=== PATIENT | male | born 1970 | race Caucasian/White ===

== ENCOUNTER 2017-06-24 07:56 | Outpatient (CLI) ==
[2014-09-26 19:39] VITALS: BMI 30.9
== END 2017-06-24 07:57 | disposition home or self-care (01) ==
LOC: AMBL 07:56
PROVIDERS: ATTEND Emergency Medicine
DX: S01.411A Laceration without foreign body of right cheek and temporomandibular area, initial encounter (principal); S01.311A Laceration without foreign body of right ear, initial encounter; S20.319A Abrasion of unspecified front wall of thorax, initial encounter; W20.8XXA Other cause of strike by thrown, projected or falling object, initial encounter; F17.210 Nicotine dependence, cigarettes, uncomplicated

== ENCOUNTER 2018-01-25 12:50 | Emergency (ER) | payer OTHER ==
[2018-01-25 12:53] VITALS: BP 158/88; TEMP 97.1; BMI 31.5
--- NOTE | 2018-01-25 14:18 | CT ---
EXAM: CTA of the chest. History: Chest pain. Technique: Multiplanar CT images through the thorax were obtained following administration of IV con trast. MIP images and 3-D reconstructions were also provided. Findings: Heart size is within normal limits. No pericardial effusion. Great vessels are unremarka ble. No pathologically enlarged thoracic lymph nodes. No pulmonary arterial filling defects. Mild di ffuse bronchial wall thickening. No pneumothorax. Mild left lower lobe infiltrate and trace left ple ural effusion. Trace right pleural effusion. No suspicious lung masses or lung nodules. Within the visualized upper abdomen, no acute findings. No acute osseous abnormalities. Impression: 1. No pulmonary embolism. 2. Mild left lower lobe infiltrate and trace left pleural effusion. 3. Trace right pleural effusion. 4. Diffuse bronchial wall thickening.
[2018-01-25] MEDS ORDERED: LEVAQUIN 750 MG in PREMIX 150 ML D5W 1 BAG IV STA (14:25)
[2018-01-25] MEDS ORDERED: DUONEB NEB STA (14:26)
--- NOTE | 2018-01-25 14:28 | ED.PDOC ---
General ED Provider: Dr. JENNIFER WILD-ER Chief Complaint: Chest Pain Stated Complaint: im coughing and congested and i had fever--i think i have pneumonia Time Seen by Physician: 12:55 Mode of Arrival: Walk-In Information Source: Patient Exam Limitations: No limitations Primary Care Provider: [facility] Nursing and Triage Documentation Reviewed and Agree: Yes Reviewed sepsis parameters & appropriate labs ordered?: Yes System Inflammatory Response Syndrome: Not Applicable Sepsis Protocol: For patient's 13 years and over: Temp is 96.8 and below OR 101 and greater Pulse >90 BPM Resp >20/minute Acutely Altered Mental Status Are patient's symptoms suggestive of a new infection, such as: -Pneumonia -Skin, Soft Tissue -Endocarditis -UTI -Bone, Joint Infection -Implantable Device -Acute Abdominal Infection -Wound Infection -Meningitis -Blood Stream Catheter Infection -Unknown Respiratory Complaint Exam - Respiratory Complaint/Exam Onset/Duration: 2 days Symptoms Are: Still present Initial Severity: Mild Current Severity: Mild Character: Reports: Productive cough Aggravating: Reports: URI Alleviating: Reports: None, Nasal suction Associated Signs and Symptoms: Reports: Fever, Chills, URI. Denies: Rapid breathing, Dyspnea, Chest pain, Pleuritic chest pain, Wheezing, Hemoptysis, Dizziness, Calf pain, Calf swelling, Edema Related History: Reports: Similar episode History of Healthcare-Acquired Pneumonia: No Pulmonary Embolism Risk Factors: None Cardiac Risk Factors: Reports: Smoking Home Oxygen Use: No Recent Stress Test: No Recent Echo/LV Function: No Current Antibiotic Use: No Current Asthma Medication Use: No Respiratory Distress: None Inadequate Respiratory Effort: No Dysphagia Present: No Stridor Present: No JVD Present: No Accessory Muscle Use: No Retractions: Not Present Diminished Breath Sounds: No Sinus Tenderness: None Grunting Respirations: No Kussmaul Respirations: No Differential Diagnoses: Pneumonia, Bronchitis Non-Traumatic Chest Pain Syncope: EKG Performed Review of Systems - Review Of Systems Constitutional: Reports: Chills, Fever Eyes: Reports: No symptoms Ears, Nose, Mouth, Throat: Reports: No symptoms Respiratory: Reports: Cough Cardiac: Reports: No symptoms GI: Reports: No symptoms : Reports: No symptoms Musculoskeletal: Reports: No symptoms Skin: Reports: No symptoms Neurological: Reports: No symptoms Endocrine: Reports: No symptoms Hematologic/Lymphatic: Reports: No symptoms All Other Systems: Reviewed and Negative Past Medical History - Past Medical History Previously Healthy: Yes Endocrine: Reports: Unknown Cardiovascular: Reports: Unknown Respiratory: Reports: Unknown Hematological: Reports: Unknown Gastrointestinal: Reports: Unknown Genitourinary: Reports: Unknown Neuro/Psych: Reports: Unknown Musculoskeletal: Reports: Unknown Cancer: Reports: Unknown - Surgical History General Surgical History: Reports: Unknown - Family History Family History: Reports: Unknown - Social History Smoking Status: Current every day smoker, Heavy tobacco smoker Hx Substance Use: No Alcohol Screening: None Physical Exam - Physical Exam Appearance: Well-appearing, No pain distress, Well-nourished Eyes: ELBA, EOMI, Conjunctiva clear ENT: Ears normal, Nose normal, Oropharynx normal Neck: Supple Respiratory: Crackles, Rhonchi Cardiovascular: RRR, Pulses normal, No rub, No murmur GI/: Soft, Nontender, No masses, Bowel sounds normal, No Organomegaly Musculoskeletal: Normal strength, ROM intact, No edema, No calf tenderness Skin: Warm, Dry, Normal color Neurological: Sensation intact, Motor intact, Reflexes intact, Cranial nerves intact, Alert, Oriented Psychiatric: Affect appropriate, Mood appropriate Interpretation - Radiology Interpretation Radiology Interpretation By: Radiologist Radiology Results: Positive Exam Interpreted: CT Scan - EKG Interpretation Time of EKG #1: 14:30 Rate: Normal Rhythm: Sinus Ectopy: None [place]: NL ST Segment: Normal Interpretation: nsr Re-Evaluation - Re-Evaluation Time of Re-Evaluation: 14:30 Status: Improved Vital Signs Stable: Yes Pain Level: 0 Appearance: NAD Lungs: Clear Skin: Warm and Dry Neuro: Alert and Oriented X3 CV: RRR Critical Care Note - Critical Care Note Total Time (mins): 0 Course - Course Hematology/Chemistry: 01/25/18 13:00 01/25/18 13:00 Orders, Labs, Meds: Lab Review 01/25/18 01/25/18 01/25/18 13:00 13:00 13:47 WBC 8.84 RBC 4.82 Hgb 14.5 Hct 41.8 L MCV 86.7 MCH 30.1 MCHC 34.7 RDW Coeff of José 13.9 Plt Count 184 Immature Gran % (Auto) 1.5 Neut % (Auto) 60.2 Lymph % (Auto) 28.8 [place] % (Auto) 6.9 Eos % (Auto) 1.9 Baso % (Auto) 0.7 Immature Gran # (Auto) 0.1 Neut # (Auto) 5.3 Lymph # (Auto) 2.6 [place] # (Auto) 0.6 Eos # (Auto) 0.2 Baso # (Auto) 0.1 ESR 19 H Sodium 138 Potassium 3.9 Chloride 103 Carbon Dioxide 24 Anion Gap 14.9 BUN 10 Creatinine 1.00 Estimated GFR (MDRD) 79.00 BUN/Creatinine Ratio 10.00 Glucose 122 H Calcium 8.5 Total Bilirubin 0.4 AST 35 ALT 38 Alkaline Phosphatase 112 Total Creatine Kinase 194 CK-MB (CK-2) 2.8 CK-MB (CK-2) % 1.31909 Troponin I < 0.0100 Total Protein 7.4 Albumin 3.9 Globulin 3.5 Albumin/Globulin Ratio 1.11 Amylase 45 Lipase 30 Urine Color Yellow Urine Clarity Clear Urine pH 7.0 Ur Specific [place] 1.010 Urine Protein Negative Urine Glucose (UA) Negative Urine Ketones Negative Urine Blood Negative Urine Nitrite Negative Urine Bilirubin Negative Urine Urobilinogen 0.2 Ur Leukocyte Esterase Negative Orders Category Date Time Status EKG-(ED ONLY) Stat CARDIO 01/25/18 12:54 Completed NEBULIZER TREATMENT Stat CARDIO 01/25/18 14:26 Ordered NPO REMINDER: IMAGING ONCE CARE 01/25/18 12:58 Active IV [ED IV/MEDIPORT/POWERPORT] .ONCE EMERGENCY 01/25/18 12:57 Active AMYLASE Stat LAB 01/25/18 13:00 Completed CBC W/ AUTO DIFF Stat LAB 01/25/18 13:00 Completed COMPREHENSIVE METABOLIC PANEL Stat LAB 01/25/18 13:00 Completed CREATINE KINASE Stat LAB 01/25/18 13:00 Completed ESR Stat LAB 01/25/18 13:00 Completed LIPASE Stat LAB 01/25/18 13:00 Completed TROPONIN I Stat LAB 01/25/18 13:00 Completed URINALYSIS C & S IF INDICATED Stat LAB 01/25/18 13:47 Completed 0.9 % Sodium Chloride [Saline Flush] MEDS 01/25/18 12:57 Ordered 1 syr IVF PRN PRN Ipratropium/Albuterol Neb [Duoneb] MEDS 01/25/18 14:26 Stat 1 vial NEB ONCE STA Levofloxacin/D5w [Levaquin] 750 mg MEDS 01/25/18 14:25 Active Premix 150 ml D5w [address] CHEST PE PROTOCOL Stat RADS 01/25/18 12:57 Completed Medications Generic Name Dose Route Start Last Admin Trade Name Freq PRN Reason Stop Dose Admin Albuterol/Ipratropium 1 vial 01/25/18 14:26 Duoneb NEB 01/25/18 14:27 ONCE STA Levofloxacin/Dextrose 750 mg/ 150 mls @ 100 mls/hr 01/25/18 14:25 Dextrose IV 01/25/18 15:54 ONCE STA Sodium Chloride 1 syr 01/25/18 12:57 Saline Flush IVF PRN PRN To flush IV Vital Signs: Temp Pulse Resp BP Pulse Ox 01/25/18 12:50 97.1 F L 72 18 158/88 H 97 Departure - Departure Time of Disposition: 14:31 Disposition: HOME SELF-CARE Discharge Problem: Pneumonia Qualifiers: Pneumonia type: due to unspecified organism Laterality: left Lung location: lower lobe of lung Qualified Code(s): J18.1 - Lobar pneumonia, unspecified organism Instructions: Community Acquired Pneumonia (ED) Condition: Good Pt referred to PMD for follow-up: Yes IPMP verified?: No Additional Instructions: levaquin 500mg #7--mucinex 1200mg bid #60---avoid cig smoke--see pmd on friday for recheck Allergies/Adverse Reactions: Allergies clarithromycin [From Biaxin] Allergy (Unknown, Verified 01/25/18 12:53) "tingling hands" Penicillins Adverse Reaction (Verified 01/25/18 12:53) Home Medications: Ambulatory Orders 1 [No Reported Medications] 01/25/18 Disposition Discussed With: Patient, Family
[2018-01-25] MEDS ORDERED: LEVAQUIN 150 ML IV ONE (14:34)
== END 2018-01-25 16:22 | disposition home or self-care (01) ==
LOC: ED 12:50
DX: J18.1 Lobar pneumonia, unspecified organism (principal); F17.210 Nicotine dependence, cigarettes, uncomplicated
CPT/HCPCS: 36415; 80053; 81001; 82150; 82550; 82553; 83690; 84484; 85025; 85651; 93005; 93010; 94640; 96365; 99283

== ENCOUNTER 2018-08-26 12:52 | Emergency (ER) ==
[2018-08-26 13:02] VITALS: BP 139/78; TEMP 98.8; BMI 27.5
--- NOTE | 2018-08-26 13:31 | ED.PDOC ---
General ED Provider: Dr. CLAUDIO MCCAIN Chief Complaint: Hand Pain/Injury Stated Complaint: right hand pain/ wrist pain Time Seen by Physician: 13:00 Mode of Arrival: Walk-In Information Source: Patient Exam Limitations: No limitations Primary Care Provider: SERG ROBERTS Nursing and Triage Documentation Reviewed and Agree: Yes Does patient meet sepsis criteria?: No System Inflammatory Response Syndrome: Not Applicable Sepsis Protocol: For patient's 13 years and over: Temp is 96.8 and below OR 101 and greater Pulse >90 BPM Resp >20/minute Acutely Altered Mental Status Are patient's symptoms suggestive of a new infection, such as: -Pneumonia -Skin, Soft Tissue -Endocarditis -UTI -Bone, Joint Infection -Implantable Device -Acute Abdominal Infection -Wound Infection -Meningitis -Blood Stream Catheter Infection -Unknown Musculoskeletal Complaint Exam - Hand/Wrist Complaint/Exam Location of Pain: Reports: Right, Hand, Wrist Mechanism of Injury: Reports: Trauma (blunt force trauma) Onset/Duration: 1 day Symptoms Are: Still present Onset of Pain: Reports: Hours Initial Severity: Moderate Current Severity: Moderate Location: Reports: Discrete Character: Reports: Aching Alleviating: Reports: Rest Aggravating: Reports: None Associated Signs and Symptoms: Denies: Swelling, Redness, Bruising, Fever, Weakness, Numbness, Tingling Dominant Hand: Right Related Surgical History: Reports: None Differential Diagnoses: Closed Fracture Review of Systems - Review Of Systems Constitutional: Reports: No symptoms Eyes: Reports: No symptoms Ears, Nose, Mouth, Throat: Reports: No symptoms Respiratory: Reports: No symptoms Cardiac: Reports: No symptoms GI: Reports: No symptoms : Reports: No symptoms Musculoskeletal: Reports: Joint pain (right hand ) Skin: Reports: No symptoms Neurological: Reports: No symptoms Endocrine: Reports: No symptoms Hematologic/Lymphatic: Reports: No symptoms All Other Systems: Reviewed and Negative Past Medical History - Past Medical History Previously Healthy: Yes Endocrine: Reports: Unknown Cardiovascular: Reports: Unknown Respiratory: Reports: Unknown Hematological: Reports: Unknown Gastrointestinal: Reports: Unknown Genitourinary: Reports: Unknown Neuro/Psych: Reports: Unknown Musculoskeletal: Reports: Unknown Cancer: Reports: Unknown - Surgical History General Surgical History: Reports: Unknown - Family History Family History: Reports: Unknown - Social History Smoking Status: Current every day smoker, Heavy tobacco smoker Hx Substance Use: No Alcohol Screening: None - Immunizations Tetanus Shot up to Date: Yes (2016) Physical Exam - Physical Exam Appearance: Well-appearing, No pain distress, Well-nourished Eyes: ELBA, EOMI, Conjunctiva clear ENT: Ears normal, Nose normal, Oropharynx normal Respiratory: Airway patent, Breath sounds clear, Breath sounds equal, Respirations nonlabored Cardiovascular: RRR, Pulses normal, No rub, No murmur GI/: Soft, Nontender, No masses, Bowel sounds normal, No Organomegaly Musculoskeletal: Normal strength, ROM intact, No edema, No calf tenderness Skin: Warm, Dry, Normal color Neurological: Sensation intact, Motor intact, Reflexes intact, Cranial nerves intact, Alert, Oriented Psychiatric: Affect appropriate, Mood appropriate Critical Care Note - Critical Care Note Total Time (mins): 0 Course - Course Orders, Labs, Meds: Orders Category Date Time Status HAND, RIGHT 3 VIEWS Stat RADS 08/26/18 13:13 Completed WRIST, RIGHT 3 VIEWS Stat RADS 08/26/18 13:13 Completed Vital Signs: Temp Pulse Resp BP Pulse Ox 08/26/18 12:56 98.8 F 72 20 139/78 97 Departure - Departure Time of Disposition: 14:00 Disposition: HOME SELF-CARE Discharge Problem: Hand pain Instructions: Hand Sprain (ED) Condition: Good Pt referred to PMD for follow-up: Yes IPMP verified?: No Additional Instructions: [place] 10/325 (#9), 1 tablet 3 times per day as needed for pain. Follow up with your doctor if pain continues. Allergies/Adverse Reactions: Allergies clarithromycin [From Biaxin] Allergy (Unknown, Verified 08/26/18 13:01) "tingling hands" Penicillins Adverse Reaction (Verified 08/26/18 13:01) Home Medications: Ambulatory Orders 1 [No Reported Medications] 01/25/18
--- NOTE | 2018-08-26 13:59 | DI ---
EXAM: Three views of the right hand. History: Right hand trauma. Findings: No acute fracture or dislocation. No abnormal calcifications or radiopaque foreign bodies . Joint spaces are relatively preserved. Soft tissue swelling over the knuckles. Impression: No acute osseous abnormality
--- NOTE | 2018-08-26 14:02 | DI ---
EXAM: Three views of the right wrist. History: Right wrist trauma. Findings: No acute fracture or dislocation. Moderate narrowing of the first carpal metacarpal joint with small osteophytes. Joint spaces are otherwise preserved. Impression: 1. No acute osseous abnormality. 2. 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
== END 2018-08-26 14:30 | disposition home or self-care (01) ==
LOC: ED 12:52
DX: M79.641 Pain in right hand (principal); M25.531 Pain in right wrist; W22.8XXA Striking against or struck by other objects, initial encounter; F17.210 Nicotine dependence, cigarettes, uncomplicated
CPT/HCPCS: 99283

== ENCOUNTER 2024-02-02 22:52 | Observation (INO) ==
--- NOTE | 2024-02-02 23:38 | ED.PDOC ---
General ED Provider: Dr. CLAUDIO MOORE MD Chief Complaint: Extremity Swelling/Pain Stated Complaint: Patient history of patient with a history of COPD, chronic pain syndrome, chronic low back pain, hypothyroidism, hep C, complains of falling 1 month ago onto his right knee with progression of swelling and redness down to his ankle and foot over the past week. Patient states he fell a week ago and now has increasing swelling over his knee Flexion. Patient complains of right knee And marquez pain discomfort. Has a fever earlier this week. Denies dyspnea, diaphoresis, palpitations. Time Seen by Provider: 02/02/24 23:25 Mode of Arrival: Walk-In Information Source: Patient Exam Limitations: Clinical condition Primary Care Provider: CHARMAINE SARAH APRN Nursing and Triage Documentation Reviewed and Agree: Yes What is Opioid Naive?: *Opioid Naive implies the patient is not already taking opioids or not chronically receiving opioids on a daily basis. *PRN dosing is not "usually" associated with tolerance. *Patients are at higher risk of over-sedation and aspiration. What is Opioid Tolerant?: *Opioid Tolerance implies less than the expected response to an opioid. *Acquired tolerance is defined by the patient taking 60mg of oral morphine daily (or equianalgesic dose of another opioid) for 1 week or more. *Often associated with chronic pain. *May take more than usual dose to achieve desired pain control. Review of Systems Review Of Systems Constitutional: Reports Fever (Earlier this week) Eyes: Reports No symptoms Ears, Nose, Mouth, Throat: Reports No symptoms Respiratory: Reports No symptoms Cardiac: Reports No symptoms GI: Reports No symptoms : Reports No symptoms Musculoskeletal: Reports Joint pain, Joint swelling and Other (Right lower extremity knee calf and marquez pain with swelling and redness) Skin: Reports Other (Erythema right extremity below the knee) Neurological: Reports No symptoms Endocrine: Reports No symptoms Hematologic/Lymphatic: Reports No symptoms All Other Systems: Reviewed and Negative [facility] Medical History Hyperlipidemia E78.5 - Hyperlipidemia, unspecified (ICD-10) Hypokalemia Potassium 2.63 at [facility] on 04/24/20 will repeat labs today E87.6 - Hypokalemia (ICD-10) Pneumonia J18.9 - Pneumonia, unspecified organism (ICD-10) Family History Mother Hypertension Other COPD (chronic obstructive pulmonary disease) Cancer DM (dermatomyositis) Hyperthyroidism Hypoglycemia Social History Smoking and tobacco status: Current every day smoker Tobacco: How many years used: 35 Second hand smoke exposure: Yes Alcohol intake: never Substance use type: does not use Vianey/scientology: None Special vianey needs: No Agree to transfusion: Yes Adopted: No Caregiver/support person: Yes Household members: significant other Housing: house Lives independently: Yes Highest education level completed: 12th grade, no diploma Financial difficulty paying for basics: not applicable service: No Current occupational status: unemployed Current occupational exposures/hazards: No Pets and animals: Yes Leisure activites: fishing and other History of recent travel: No Sexually active: Yes Do you think of yourself as: straight/heterosexual Current gender identity: male Seatbelt use: always Helmet use: No (N/A) Drives intoxicated or rides with intoxicated front end driver: No Water heater temperature set < 120 degrees: Yes Working smoke detector in home: Yes Fire extinguisher in home: No Carbon monoxide detector in home: Yes Firearms in home: No Physical Exam Physical Exam Appearance: Reports Well-appearing Ill-appearing: None Pain Distress: Mild Eyes: Reports ELBA, EOMI, Conjunctiva clear and Conjunctiva inflammed ENT: Reports Ears normal, Nose normal and Oropharynx normal Neck: Supple Respiratory: Reports Airway patent, Breath sounds clear and Breath sounds equal Cardiovascular: Reports RRR, Pulses normal, No rub and No murmur GI/: Reports Soft, Nontender and Bowel sounds normal Musculoskeletal: Reports Normal strength, ROM intact, Limited ROM (The right knee with swelling erythema minimal warmth there is marked swelling erythema calf and marquez tenderness extending to the right foot. The mid calf circumference on the right is 48 cm compared to 40 cm circumference on the left. There is 1+ pitting pretibial edema on the left there is 3+ pit) and Edema (There is 1+ presacral edema, there is 3+ pitting edema of the right lower extremity and 2+ pretibial edema of the left marquez.) Skin: Reports Warm and Dry Neurological: Reports Sensation intact, Motor intact, Reflexes intact, Cranial nerves intact, Alert and Oriented Psychiatric: Reports Affect appropriate Physician Notification Case Discussed Physician Notified: Discussed with hospitalist Emeterio Barragan Time of Notification: 03:15 Comments: After review of all laboratory data x-ray and CT scan findings and recommendations for observation do not he is taking gabapentin 4 times a day thank are Critical Care Note Critical Care Note Total Critical Care Time (mins): 20 Course Course 02/02/24 00:05 02/02/24 00:05 Orders, Labs, Meds: Lab Review 02/02/24 02/03/24 02/03/24 00:05 00:01 02:27 WBC 8.39 RBC 4.42 L Hgb 12.9 L Hct 39.9 L MCV 90.3 MCH 29.2 MCHC 32.3 RDW Coeff of José 14.4 Plt Count 217 Immature Gran % (Auto) 1.4 Neut % (Auto) 61.3 Lymph % (Auto) 25.6 [place] % (Auto) 9.5 Eos % (Auto) 1.7 Baso % (Auto) 0.5 Neut # (Auto) 5.1 Lymph # (Auto) 2.2 [place] # (Auto) 0.8 Eos # (Auto) 0.1 Baso # (Auto) 0.0 Immature Gran # (Auto) 0.1 PT 9.3 INR 0.89 APTT 27.1 Sodium 138.8 Potassium 3.63 Chloride 105.1 Carbon Dioxide 27.5 Anion Gap 9.83 BUN 14.1 Creatinine 1.09 Estimated GFR (MDRD) 70.00 BUN/Creatinine Ratio 12.93 Glucose 123.7 H Calcium 9.06 Magnesium 2.14 Total Bilirubin 0.51 AST 45.5 ALT 25.6 Alkaline Phosphatase 140.2 H Troponin I < 0.012 NT-Pro-B Natriuret Pep < 20 Total Protein 7.37 Albumin 3.90 Globulin 3.47 Albumin/Globulin Ratio 1.12 D-Dimer 1387.81 H Urine Color Yellow Urine Clarity Clear Urine pH 7.0 Ur Specific [place] 1.025 Urine Protein Negative Urine Glucose (UA) Negative Urine Ketones Negative Urine Blood Negative Urine Nitrite Negative Urine Bilirubin Negative Urine Urobilinogen 1.0 H Ur Leukocyte Esterase Negative SARS CoV-2 RNA Rapid [place] Negative Orders Category Date Time Status EKG-(ED ONLY) Stat CARDIO 02/03/24 02:30 Completed NPO REMINDER: IMAGING ONCE CARE 02/03/24 02:02 Completed Saline Lock [ED IV/MEDIPORT/POWERPORT] .ONCE EMERGENCY 02/02/24 23:38 Active BLOOD CULTURE (ED ONLY) Stat LAB 02/02/24 00:05 Received CBC W/ AUTO DIFF Stat LAB 02/02/24 00:05 Completed CMP [COMPREHENSIVE METABOLIC PANEL] Stat LAB 02/02/24 00:05 Completed D-DIMER Stat LAB 02/02/24 00:05 Completed MAGNESIUM Stat LAB 02/02/24 00:05 Completed PROBNP ED [NT-PROBNP(ED)] Stat LAB 02/02/24 00:05 Completed PT WITH INR Stat LAB 02/02/24 00:05 Completed PTT [PARTIAL THROMBOPLASTIN TIME] Stat LAB 02/02/24 00:05 Completed SARS COV-2 RNA RAPID [place] Stat LAB 02/03/24 02:27 Completed TROPONIN I Stat LAB 02/02/24 00:05 Completed URINALYSIS C & S IF INDICATED Stat LAB 02/03/24 00:01 Completed 0.9 % Sodium Chloride [Saline Flush] Meds 02/02/24 23:38 Active 1 syr IVF PRN PRN Enoxaparin Sodium [Lovenox] Meds 02/03/24 01:23 Discontinued 100 mg SUBCUT ONCE ONE Furosemide [Lasix] Meds 02/02/24 23:39 Discontinued 40 mg IVP ONCE STA Morphine Sulfate [Morphine 4 mg/ml Syringe] Meds 02/03/24 00:00 Discontinued 4 mg IVP ONCE ONE Ondansetron HCl/Pf [Zofran 4 mg/2 ml] Meds 02/03/24 00:00 Discontinued 4 mg IVP ONCE STA Vancomycin/Water For Inj (Peg) [Vancomycin 1 Gram/200 Meds 02/02/24 23:39 Discontinued ml Premix] 1 gm in 200 ml IV ONCE CHEST, 1V AP ONLY Stat RADS 02/03/24 01:[address] TIB/FIB RIGHT WITH CONTRAST Stat RADS 02/03/24 02:02 Completed KNEE, RIGHT 4 VIEWS Stat RADS 02/02/24 23:41 Completed TIBIA/FIBULA, RIGHT 2 VIEW Stat RADS 02/02/24 23:41 Completed Medications Generic Name Dose Route Start Last Admin Trade Name Freq PRN Reason Stop Dose Admin Sodium Chloride 1 syr 02/02/24 23:38 0.9% Sodium Chloride 10 Ml Disp.Syrin IVF PRN PRN To flush IV Discontinued Medications Generic Name Dose Route Start Last Admin Trade Name Freq PRN Reason Stop Dose Admin Enoxaparin Sodium 100 mg 02/03/24 01:23 02/03/24 01:47 Enoxaparin Sodium 100 Mg/Ml Syr SUBCUT 02/03/24 01:24 100 mg ONCE ONE Administration Furosemide 40 mg 02/02/24 23:39 02/03/24 00:10 Furosemide Inj 40 Mg/4 Ml Vial IVP 02/02/24 23:40 40 mg ONCE STA Administration VANCOMYCIN/WATER FOR INJ (PEG) 1 gm in 200 mls @ 200 mls/hr 02/02/24 23:39 02/03/24 00:10 Vancomycin 1 Gram/200 Ml Premix IV 02/03/24 00:38 200 mls/hr ONCE ONE Administration Morphine Sulfate 4 mg 02/03/24 00:00 02/03/24 00:10 Morphine Sulfate 4 Mg/Ml Syringe IVP 02/03/24 00:01 4 mg ONCE ONE Administration Ondansetron HCl 4 mg 02/03/24 00:00 02/03/24 00:10 Ondansetron Hcl/Pf 4 Mg/2 Ml Sdv IVP 02/03/24 00:01 4 mg ONCE STA Administration Vital Signs: Temp Pulse Resp BP Pulse Ox 02/02/24 23:04 97.7 F 79 18 148/82 H 96 Discharge Plan Discharge Patient Disposition: PLACED OBSERVATION Discharge Problem: Cellulitis and abscess of right leg, D-dimer, elevated Prescriptions: No Action gabapentin 600 mg tablet See Rx Instructions .ROUTE .COMPLEX Qty: 120 0RF Dose Instruction: TAKE 1 TABLET BY MOUTH FOUR TIMES DAILY Rx Instructions: TAKE 1 TABLET BY MOUTH FOUR TIMES DAILY fluticasone propion-salmeterol [Advair Diskus] 250-50 mcg/dose blister with device 1 inh INHALATION BID Patient Comments: INHALE 1 PUFF BY MOUTH TWICE DAILY clindamycin HCl 300 mg capsule 300 mg PO QID 10 Days Qty: 40 0RF atorvastatin [Lipitor] 20 mg tablet 20 mg PO QDAY Qty: 90 2RF levocetirizine [Xyzal] 5 mg tablet 5 mg PO QDAY PRN (Reason: allergy symptoms) Qty: 30 0RF levothyroxine 50 mcg capsule 50 mcg PO QDAY Qty: 30 2RF pantoprazole 40 mg tablet,delayed release (DR/EC) 40 mg PO QDAY Qty: 90 2RF albuterol sulfate [ProAir HFA] 90 mcg/actuation HFA aerosol inhaler 2 puff inhalation Q6H PRN (Reason: bronchospasm) Qty: 1 0RF Did you review [place] [employer] for ALL controlled substances?: Not Applicable Discussed opioids are addictive and Narcan is available by prescription or from pharmacy.: No ED Provider: CLAUDIO MOORE Condition: Stable Physician Progress Note: Patient with history of COPD, chronic low back pain, hypothyroidism, and hepatitis C states he fell a month ago injuring his right knee in the past 2 weeks has noticed increasing swelling from his knee down to his right foot. Associated with calf pain swelling and redness. States he had a fever earlier in the week. Patient also admits to falling 1 week ago on his right knee. Denies dyspnea, chest pain, diaphoresis, palpitations. Patient was seen emergency room evaluation date and placed on antibiotics clindamycin 300 g 4 times daily for cellulitis of the right lower extremity. Saline lock was established on the 2 sets of blood cultures patient administered vancomycin 1 g IV piggyback. Lasix 40 mg, Zofran 4 mg, morphine sulfate 4 mg IV Patient ad is ministered Lovenox 100 mg subcu X-ray of the right knee interpretation by radiologist shows no evidence of fracture or dislocation. Suprapatellar edema noted. X-ray of the right tibia [] Interpretation by the radiologist shows no evidence of fracture or dislocation, there is marked subcutaneous edema. Portal chest x-ray interpretation by myself is consistent with chronic interstitial changes without evidence of infiltrates congestive heart failure consolidation and pneumothorax. EKG interpretation normocephalic assessment no sinus rhythm rate of 76 there is no ectopy, ischemic changes noted. CT scan with intravenous contrast of the right lower extremity interpretation from radiologist is consistent with a 5.3 x 0.8 cm soft tissue abscess anterior to the patella. There is diffuse subcutaneous edema right lower extremity consistent with infection. Urine output 1350 mL Differential diagnosis: 1) right lower extremity cellulitis 2) dependent edema 3) elevated D-dimer Discussed with hospitalist Emeterio Barragan at 0315 for observation.
[2024-02-03] MEDS: MORPHINE 4 MG/ML SYRINGE IVP ONE (00:10)
[2024-02-03] MEDS: ZOFRAN 4 MG/2 ML IVP STA (00:10)
[2024-02-03] MEDS: VANCOMYCIN 1 GRAM/200 ML PREMIX 1 GM/200 ML BAG IV ONE (00:10)
[2024-02-03] MEDS: LASIX IVP STA (00:10)
[2024-02-03 00:13] LABS: BASOPHILS % (AUTO) 0.5 % (0.0-3.0); EOSINOPHILS # (AUTO) 0.1 K/ul (0.0-0.7); EOSINOPHILS % (AUTO) 1.7 % (0.0-7.0); HEMATOCRIT 39.9 % (42.0-52.0); HEMOGLOBIN 12.9 g/dl (14.0-18.0); IMMATURE GRANULOCYTE # (AUTO) 0.1 (0.0-1.0); IMMATURE GRANULOCYTE % (AUTO) 1.4 % (0.0-5.0); LYMPHOCYTES # (AUTO) 2.2 K/uL (0.60-3.4); LYMPHOCYTES % (AUTO) 25.6 (10.0-50.0); MEAN CORPUSCULAR HEMOGLOBIN 29.2 pg (27.0-31.0); MEAN CORPUSCULAR HGB CONC 32.3 (31.8-35.4); MEAN CORPUSCULAR VOLUME 90.3 fl (80.0-94.0); MONOCYTES # (AUTO) 0.8 K/uL (0.4-2.0); MONOCYTES % (AUTO) 9.5 (0-10); NEUTROPHILS # (AUTO) 5.1 K/ul (2.0-6.9); NEUTROPHILS % (AUTO) 61.3 % (42.2-75.2); PLATELET COUNT 217 10^3/uL (140-440); RDW COEFFICIENT OF VARIATION 14.4 % (11.6-14.8); RED BLOOD COUNT 4.42 10^6/ul (4.70-6.10); WHITE BLOOD COUNT 8.39 K/ul (4.2-10.2)
--- NOTE | 2024-02-03 00:19 | DI ---
EXAM: FOUR VIEWS OF THE RIGHT KNEE. HISTORY: Fall, right knee injury. COMPARISON: None. FINDINGS / IMPRESSION: No acute fracture or dislocation. No joint effusion. Prepatellar soft tissue swelling. Enthesophyte at the superior patella.
--- NOTE | 2024-02-03 00:21 | DI ---
EXAM: TWO VIEWS OF THE RIGHT TIBIA AND FIBULA. History: Right leg pain and swelling. FINDINGS: No acute fracture or dislocation. Calcaneal enthesiopathy. Diffuse soft tissue swelling/ subcutaneous edema. The superior patellar enthesiopathy. The soft tissue swelling is most notable a nterior to the patella. Impression: 1. No acute osseous abnormality. 2. Severe diffuse subcutaneous edema.
[2024-02-03 00:32] LABS: ALANINE AMINOTRANSFERASE 25.6 U/L (0-50); ALKALINE PHOSPHATASE 140.2 U/L (38-126); ASPARTATE AMINO TRANSFERASE 45.5 U/L (17-59); BILIRUBIN,TOTAL 0.51 mg/dL (0.2-1.3); BLOOD UREA NITROGEN 14.1 mg/dL (9-20); CALCIUM 9.06 mg/dL (8.4-10.2); CARBON DIOXIDE 27.5 mmol/L (22-30.0); CHLORIDE 105.1 mmol/L (98-107); CREATININE 1.09 mg/dL (0.60-1.10); GLUCOSE 123.7 mg/dL (74-106); MAGNESIUM 2.14 mg/dL (1.6-2.3); POTASSIUM 3.63 mmol/L (3.5-5.1); SODIUM 138.8 mmol/L (134.5-145); TOTAL PROTEIN 7.37 g/dL (6.3-8.2)
[2024-02-03 00:38] LABS: PARTIAL THROMBOPLASTIN TIME 27.1 SEC (23.9-40.0); PROTHROMBIN TIME 9.3 SEC (9.3-11.0)
[2024-02-03 00:43] LABS: BILIRUBIN,URINE Negative (NEGATIVE); CLARITY,URINE Clear (CLEAR); COLOR,URINE Yellow (YELLOW); GLUCOSE, URINE (UA) Negative (NEGATIVE); KETONES,URINE Negative (NEGATIVE); LEUKOCYTE ESTERASE ,URINE Negative (NEGATIVE); NITRITE,URINE Negative (NEGATIVE); PROTEIN,URINE Negative (NEGATIVE); URINE, BLOOD Negative (NEGATIVE)
[2024-02-03 00:44] LABS: TROPONIN I < 0.012 ng/ml (0.0000-0.120)
--- NOTE | 2024-02-03 01:43 | DI ---
EXAM: SINGLE VIEW OF THE CHEST. History: Dyspnea. Comparison: Chest radiograph 09/24/2021 FINDINGS: Heart size is normal. No consolidation. No pleural fluid and no pneumothorax. No acute osseous abnormalities. Impression: No acute cardiopulmonary process
[2024-02-03] MEDS: LOVENOX SUBCUT ONE (01:47)
--- NOTE | 2024-02-03 03:08 | CT ---
EXAM: CT TIBIA-FIBULA RIGHT WITH IV CONTRAST. HISTORY: Calf pain swelling. PROCEDURE: Contiguous axial CT images of the right tibia and fibula with IV contrast with coronal an d sagittal reformats. FINDINGS: There is a peripherally enhancing complex fluid collection measuring 5.3 cm transverse x 0. 8 cm AP in the soft tissues anterior to the patella, consistent with an abscess. There is diffuse gomez bcutaneous edema in the right lower extremity. No intramuscular edema identified. The bones are in intact with no evidence of fracture. There is degenerative spurring along the superior pole of the p atella. There is an enthesophyte along the posterior margin of the calcaneus. Impression: 5.3 x 0.8 cm soft tissue abscess anterior to the patella. Diffuse subcutaneous edema in the right lower extremity, consistent with infection. Degenerative change as described. Calcaneal enthesophyte. All CT scans are performed using dose optimization techniques as appropriate to the performed exam an d include at least one of the following: Automated exposure control, adjustment of the mA and/or kV according t o size, and the use of iterative reconstruction technique.
[2024-02-03 03:09] LABS: SARS COV-2 RNA RAPID NAAT NEGATIVE (NEGATIVE)
[2024-02-03 04:36] VITALS: BMI 33.7
[2024-02-03] MEDS: LASIX TAB PO SCH (05:47)
[2024-02-03] MEDS: SYNTHROID PO SCH (05:47)
[2024-02-03] MEDS: NORCO 5-325 PO SCH (05:48)
[2024-02-03 07:36] LABS: BASOPHILS # (AUTO) 0.1 K/uL (0-0.2); BASOPHILS % (AUTO) 0.7 % (0.0-3.0); EOSINOPHILS # (AUTO) 0.1 K/ul (0.0-0.7); EOSINOPHILS % (AUTO) 2.1 % (0.0-7.0); HEMATOCRIT 41.5 % (42.0-52.0); HEMOGLOBIN 13.4 g/dl (14.0-18.0); IMMATURE GRANULOCYTE # (AUTO) 0.1 (0.0-1.0); IMMATURE GRANULOCYTE % (AUTO) 1.5 % (0.0-5.0); LYMPHOCYTES # (AUTO) 1.9 K/uL (0.60-3.4); LYMPHOCYTES % (AUTO) 28.6 (10.0-50.0); MEAN CORPUSCULAR HGB CONC 32.3 (31.8-35.4); MEAN CORPUSCULAR VOLUME 89.8 fl (80.0-94.0); MONOCYTES # (AUTO) 0.7 K/uL (0.4-2.0); MONOCYTES % (AUTO) 10.1 (0-10); NEUTROPHILS # (AUTO) 3.9 K/ul (2.0-6.9); PLATELET COUNT 195 10^3/uL (140-440); RDW COEFFICIENT OF VARIATION 14.6 % (11.6-14.8); RED BLOOD COUNT 4.62 10^6/ul (4.70-6.10); WHITE BLOOD COUNT 6.75 K/ul (4.2-10.2)
[2024-02-03 07:53] LABS: ALANINE AMINOTRANSFERASE 26.6 U/L (0-50); ALBUMIN 4.04 g/dL (3.5-5.0); ALKALINE PHOSPHATASE 140.5 U/L (38-126); ASPARTATE AMINO TRANSFERASE 46.3 U/L (17-59); BILIRUBIN,TOTAL 0.68 mg/dL (0.2-1.3); BLOOD UREA NITROGEN 12.4 mg/dL (9-20); CALCIUM 8.93 mg/dL (8.4-10.2); CARBON DIOXIDE 28.5 mmol/L (22-30.0); CHLORIDE 101.6 mmol/L (98-107); CREATININE 1.06 mg/dL (0.60-1.10); GLUCOSE 129.7 mg/dL (74-106); POTASSIUM 3.63 mmol/L (3.5-5.1); SODIUM 138.1 mmol/L (134.5-145); TOTAL PROTEIN 7.85 g/dL (6.3-8.2)
[2024-02-03] MEDS: K-DUR PO SCH (08:24)
[2024-02-03] MEDS: NEURONTIN PO SCH (08:24)
[2024-02-03] MEDS: PROTONIX PO SCH (08:25)
[2024-02-03] MEDS: VANCOMYCIN 1.5 GRAM/300 ML PREMIX 1.5 GM/300 ML BAG IV SCH (08:33)
[2024-02-03] MEDS ORDERED: LASIX TAB PO SCH (09:00)
[2024-02-03] MEDS ORDERED: VANCOMYCIN 1 GRAM/200 ML PREMIX 1 GM/200 ML BAG IV SCH (09:00)
--- NOTE | 2024-02-03 09:06 | PCM.SS ---
Provider Provider: PAPO GA MD, [facility] Admission Date Admission Date: 02/03/24 Discharge Date Discharge Date: 02/03/24 Primary Care Physician Primary Care Physician: CHARMAINE SARAH APRN Chief Complaint Reason For Visit: CELLULITIS RIGHT LEG, ELEVATED D DIMER History of Present Illness History of Present Illness: Admitted 02/03/24 03:17, this 53 year old /WHITE/M presented to the ER with complaints of R lower extremity swelling and redness. Patient reports that he fell on his R knee about a month ago and had some fluid surrounding the knee. States that it has progressively gotten worse since then. He was seen in the ER on 01/27 and ER provider noted that he refused labs that visit and was discharged home with Clindamycin. Patient states he has taken "probably 3 days worth". WBC within normal limits. No fever. VSS. ER provider reported CT scan showed fluid collection anterior to the patella indicative of bursitis. He was started on vancomycin and admitted to med/surg observation. Official CT report reviewed this am and showed 5.3 x 0.8 cm soft tissue abscess. Discussed with patient that this likely needs drained in order to resolve infection. Amendable to transfer at this time. [facility] Medical History Hyperlipidemia E78.5 - Hyperlipidemia, unspecified (ICD-10) Hypokalemia Potassium 2.63 at [place] on 04/24/20 will repeat labs today E87.6 - Hypokalemia (ICD-10) Pneumonia J18.9 - Pneumonia, unspecified organism (ICD-10) Family History Mother Hypertension Other COPD (chronic obstructive pulmonary disease) Cancer DM (dermatomyositis) Hyperthyroidism Hypoglycemia Social History Smoking and tobacco status: Current every day smoker Tobacco type: cigarettes Smoking packs per day: 1 Smoking cigarettes per day: 20.0 Tobacco: How many years used: 35 Second hand smoke exposure: Yes Alcohol intake: never Substance use type: does not use and methamphetamine Counseling given: No (pt states he occasionally uses IV METHAMPHETAMINE) Vianey/confucianism: None Special vianey needs: No Agree to transfusion: Yes Adopted: No Caregiver/support person: Yes Household members: significant other Housing: house Lives independently: Yes Highest education level completed: 12th grade, no diploma Financial difficulty paying for basics: not applicable service: No Current occupational status: unemployed Current occupational exposures/hazards: No Pets and animals: Yes Leisure activites: fishing and other History of recent travel: No Sexually active: Yes Do you think of yourself as: straight/heterosexual Current gender identity: male Seatbelt use: always Helmet use: No (N/A) Drives intoxicated or rides with intoxicated petroleum transport driver: No Water heater temperature set < 120 degrees: Yes Working smoke detector in home: Yes Fire extinguisher in home: No Carbon monoxide detector in home: Yes Firearms in home: No Medications Mecications: Medications at Discharge (Home Meds & RX) albuterol sulfate 90 mcg/actuation aerosol inhaler (ProAir HFA) 2 puff inhalation Q6H PRN bronchospasm #1 puff 12/17/23 atorvastatin 20 mg tablet (Lipitor) 20 mg PO QDAY #90 tabs 12/17/23 levocetirizine 5 mg tablet (Xyzal) 5 mg PO QDAY PRN allergy symptoms #30 tabs 12/17/23 levothyroxine 50 mcg capsule 50 mcg PO QDAY #30 caps 12/17/23 pantoprazole 40 mg tablet,delayed release 40 mg PO QDAY #90 tabs 12/17/23 gabapentin 600 mg tablet See Rx Instructions .Route .COMPLEX #120 tabs 01/20/24 clindamycin HCl 300 mg capsule 300 mg PO QID 10 days #40 caps 01/28/24 fluticasone 250 mcg-salmeterol 50 mcg/dose blistr powdr for inhalation (Advair Diskus) 1 inh inhalation BID 01/28/24 Allergies Allergies Allergy/AdvReac Type Severity Reaction Status Date / Time clarithromycin [From Biaxin] Allergy Unknown Rash Verified 02/02/24 23:16 Penicillins AdvReac Difficulty Verified 02/02/24 23:16 Swallowing Review of Systems Constitutional: Reports No symptoms Head: Reports Normocephalic Eyes: Reports No symptoms Ears: Reports No symptoms Nose: Reports No symptoms Mouth: Reports No symptoms Throat: Reports No symptoms Cardiovascular: Reports No symptoms Respiratory: Reports No symptoms Gastrointestinal: Reports No symptoms Genitourinary: Reports No Symptoms Musculoskeletal: Reports No symptoms Dermatologic: Reports Skin Changes (redness and swelling to RLE) Endocrine: Reports No symptoms Hematology: Reports No symptoms Immunology: Reports No symptoms Neurological: Reports No symptoms Psychiatric: Reports No symptoms Physical Examination Appearance: Positive No Apparent Distress and Alert and Oriented x3 Head: Positive Normocephalic and Atraumatic Eyes: Positive ELBA ENT: Positive Nares Normal and Oropharynx Normal Neck: Positive Supple and Non-Tender Heart: Positive RRR and No Murmurs Respiratory: Positive Airway patent, Breath Sounds Clear, Bilaterally, Breath Sounds Equal and Respirations Nonlabored GI/: Positive Soft, Nontender, Bowel sounds normal, No Distention and No masses Extremities: Positive Edema (+2-3 nonpitting edema to RLE, diffuse erythema) Neurological: Positive Recent Memory Intact, Remote Memory Intact, Alert and Oriented Psychiatric: Positive Normal Judgement, Normal Insight, Affect Appropriate and Mood Appropriate Vital Signs (Last 4 Hours) Vital Signs Last 4 Hours: Vital Signs: Last 4 Hours 02/03/24 05:33 02/03/24 05:58 02/03/24 06:59 Temperature 97.8 F Temperature Source Temporal Artery Scan Pulse Rate 76 Respiratory Rate 20 Blood Pressure 142/78 H Blood Pressure Mean 99 Blood Pressure Location Left Arm Blood Pressure Position Supine O2 Sat by Pulse Oximetry 99 Oxygen Delivery Method Room Air Room Air Room Air 02/03/24 08:00 02/03/24 08:58 Temperature Temperature Source Pulse Rate Respiratory Rate Blood Pressure Blood Pressure Mean Blood Pressure Location Blood Pressure Position O2 Sat by Pulse Oximetry Oxygen Delivery Method Room Air Room Air Labs This Visit Labs This Visit: Labs This Visit 02/02/24 02/03/24 02/03/24 00:05 00:01 02:27 WBC 8.39 RBC 4.42 L Hgb 12.9 L Hct 39.9 L MCV 90.3 MCH 29.2 MCHC 32.3 RDW Coeff of José 14.4 Plt Count 217 Immature Gran % (Auto) 1.4 Neut % (Auto) 61.3 Lymph % (Auto) 25.6 Moffat % (Auto) 9.5 Eos % (Auto) 1.7 Baso % (Auto) 0.5 Neut # (Auto) 5.1 Lymph # (Auto) 2.2 Moffat # (Auto) 0.8 Eos # (Auto) 0.1 Baso # (Auto) 0.0 Immature Gran # (Auto) 0.1 PT 9.3 INR 0.89 APTT 27.1 Sodium 138.8 Potassium 3.63 Chloride 105.1 Carbon Dioxide 27.5 Anion Gap 9.83 BUN 14.1 Creatinine 1.09 Estimated GFR (MDRD) 70.00 BUN/Creatinine Ratio 12.93 Glucose 123.7 H Calcium 9.06 Magnesium 2.14 Total Bilirubin 0.51 AST 45.5 ALT 25.6 Alkaline Phosphatase 140.2 H Troponin I < 0.012 NT-Pro-B Natriuret Pep < 20 Total Protein 7.37 Albumin 3.90 Globulin 3.47 Albumin/Globulin Ratio 1.12 D-Dimer 1387.81 H Urine Color Yellow Urine Clarity Clear Urine pH 7.0 Ur Specific Cummings 1.025 Urine Protein Negative Urine Glucose (UA) Negative Urine Ketones Negative Urine Blood Negative Urine Nitrite Negative Urine Bilirubin Negative Urine Urobilinogen 1.0 H Ur Leukocyte Esterase Negative SARS CoV-2 RNA Rapid [place] Negative 02/03/24 07:32 WBC 6.75 RBC 4.62 L Hgb 13.4 L Hct 41.5 L MCV 89.8 MCH 29.0 MCHC 32.3 RDW Coeff of José 14.6 Plt Count 195 Immature Gran % (Auto) 1.5 Neut % (Auto) 57.0 Lymph % (Auto) 28.6 Moffat % (Auto) 10.1 H Eos % (Auto) 2.1 Baso % (Auto) 0.7 Neut # (Auto) 3.9 Lymph # (Auto) 1.9 Moffat # (Auto) 0.7 Eos # (Auto) 0.1 Baso # (Auto) 0.1 Immature Gran # (Auto) 0.1 PT INR APTT Sodium 138.1 Potassium 3.63 Chloride 101.6 Carbon Dioxide 28.5 Anion Gap 11.63 BUN 12.4 Creatinine 1.06 Estimated GFR (MDRD) 73.00 BUN/Creatinine Ratio 11.69 Glucose 129.7 H Calcium 8.93 Magnesium Total Bilirubin 0.68 AST 46.3 ALT 26.6 Alkaline Phosphatase 140.5 H Troponin I NT-Pro-B Natriuret Pep Total Protein 7.85 Albumin 4.04 Globulin 3.81 Albumin/Globulin Ratio 1.06 D-Dimer Urine Color Urine Clarity Urine pH Ur Specific Cummings Urine Protein Urine Glucose (UA) Urine Ketones Urine Blood Urine Nitrite Urine Bilirubin Urine Urobilinogen Ur Leukocyte Esterase SARS CoV-2 RNA Rapid [place] Imaging Imaging: EXAM: CT TIBIA-FIBULA RIGHT WITH IV CONTRAST. FINDINGS: There is a peripherally enhancing complex fluid collection measuring 5.3 cm transverse x 0.8 cm AP in the soft tissues anterior to the patella, consistent with an abscess. There is diffuse subcutaneous edema in the right lower extremity. No intramuscular edema identified. The bones are in intact with no evidence of fracture. There is degenerative spurring along the superior pole of the patella. There is an enthesophyte along the posterior margin of the calcaneus. Impression: 5.3 x 0.8 cm soft tissue abscess anterior to the patella. Diffuse subcutaneous edema in the right lower extremity, consistent with infection. Degenerative change as described. Calcaneal enthesophyte. EXAM: SINGLE VIEW OF THE CHEST. FINDINGS: Heart size is normal. No consolidation. No pleural fluid and no pneumothorax. No acute osseous abnormalities. Impression: No acute cardiopulmonary process Review Review Statement: I have independently reviewed and interpreted the labs/EKGs/imaging that were o rdered by the ER provider. I have reviewed all outside records that are available currently in our EMR including imaging/notes/labs from previous visits. Plan Reccomendations/Plan: 1. Cellulitis with abscess to anterior patella region of right leg - likely needs I&D, no open area to culture, vancomycin Q12H 2. Elevated d-dimer - venous US ordered to r/o dvt 3. COPD - chronic, not in exacerbation, continue home medications 4. Hypothyroidism - chronic, continue home medications 5. GERD - chronic, continue home medications Additional Planning: Case discussed with ED Physician, Dr. Briscoe. DVT Prophylaxis: Lovenox Smoking Cessation: 3-10 minutes spent discussing smoking cessation. Disposition: Transfer to [facility] for higher level of care/surgery for I&D of abscess, Accepting physician: Dr. Guaman Admit to: Med/Surg Observation Discussed Plan of Care with Dr. Rudi Ga. If patient discharged with Left Ventricular Systolic Dysfunction: NA Discharged with a beta pedro? [] If no, why not? [] Discharged with an alva/arb? [] If no, why not? [] Review With Patient Reviewed with Patient and Family: Patient and family have been counseled on condition and care plan and have no immediate questions. I have personally discussed and reviewed the patient's visit/current labs/imaging/decision making with Dr. Colin Ga, my supervising attending. Total number of minutes spent with patient 85 min. More than 50% of the time spent with this patient was devoted to counseling and coordination of care. Time of Admission:02/03/24 03:17 Time of Discharge:02/03/24 09:50 Discharge Plan Discharge Discharge Orders: Discharge Patient (ONCE); Ordered 02/03/24 Ordered By: ABBIE ROA Patient Disposition: TSF SHORT-TRM HOSP Did you review [place] MACHINE MAINTENANCE TECHNICIAN for ALL controlled substances?: No Discussed opioids are addictive and Narcan is available by prescription or from pharmacy.: No Condition: Stable
[2024-02-03 10:25] VITALS: BP 125/76; RESP 14; TEMP 97.5
[2024-02-03] MEDS: SODIUM CHLORIDE 1,000 ML IV SCH (11:09)
[2024-02-03] MEDS ORDERED: VANCOMYCIN 1.25 GM/250 ML BAG 1.25 GM/250 ML BAG IV SCH (12:00)
[2024-02-03 12:03] VITALS: PULSE 78
[2024-02-03] MEDS ORDERED: LIPITOR PO SCH (21:00)
== END 2024-02-03 11:40 | disposition short-term general hospital (02) ==
LOC: ED 22:52 → MEDSURG B 22:52
PROVIDERS: ADMIT Hospitalist; ATTEND Nurse Practitioner Family
DX: Z79.899 Other long term (current) drug therapy; L03.115 Cellulitis of right lower limb; Z51.81 Encounter for therapeutic drug level monitoring; L02.415 Cutaneous abscess of right lower limb; R60.0 Localized edema; J44.9 Chronic obstructive pulmonary disease, unspecified; F17.210 Nicotine dependence, cigarettes, uncomplicated; R79.1 Abnormal coagulation profile; Z20.822 Contact with and (suspected) exposure to COVID-19; K21.9 Gastro-esophageal reflux disease without esophagitis; E03.9 Hypothyroidism, unspecified